=== PATIENT | male | born 1965 | race Caucasian/White ===

== ENCOUNTER 2016-06-19 21:55 | Emergency (ER) | payer OTHER | END 2016-06-20 00:20 | disposition home or self-care (01) | LOC: ER 21:55 | DX: T78.40XA Allergy, unspecified, initial encounter (principal); R31.21 Asymptomatic microscopic hematuria; R73.9 Hyperglycemia, unspecified; J44.9 Chronic obstructive pulmonary disease, unspecified; Z87.891 Personal history of nicotine dependence | CPT/HCPCS: 36415; 96361; 96374; 96375 ==